=== PATIENT | female | born 1995 | race Caucasian/White ===

== ENCOUNTER 2018-02-24 06:20 | Emergency (ER) | payer BC ==
[~2018-02-24] VITALS: Ht 172.7 cm; Wt 86.2 kg
[2018-02-24] MEDS ORDERED: IV NORMAL SALINE 1,000ML 1,000 ML IV SCH (06:42)
[2018-02-24] MEDS ORDERED: 0.9 % SODIUM CHLORIDE 10 ML DISP.SYRIN. IV PRN (06:45)
--- NOTE | 2018-02-24 06:48 | PHYS DOC ---
Past History Past Medical History: No Pertinent History, UTI Past Surgical History: Tonsillectomy Smoking: Non-smoker Alcohol Use: Occasionally Drug Use: None Adult General Chief Complaint Chief Complaint: ABDOMINAL PAIN HPI HPI 22-year-old female patient states she woke up at 5 AM because of severe pain in bilateral lower flank with radiation to her lower abdomen as a constant sharp pain and rated her pain 6/10. Patient complaining of nausea without vomiting and diarrhea and constipation. Patient denies urinary symptom but states she gets UTI frequently. LMP was 1 week ago and patient denies . Patient states she had sore throat yesterday without fever and chills and felt better later on. Review of Systems Review of Systems Constitutional: Denies fever or chills [] Eyes: Denies change in visual acuity, redness, or eye pain [] HENT: Denies nasal congestion , reports sore throat [] Respiratory: Denies cough or shortness of breath [] Cardiovascular: No additional information not addressed in HPI [] GI: Reports abdominal pain, nausea, denies vomiting, bloody stools or diarrhea [ ] : Denies dysuria or hematuria [] Musculoskeletal: Denies back pain or joint pain [] Integument: Denies rash or skin lesions [] Neurologic: Denies headache, focal weakness or sensory changes [] Endocrine: Denies polyuria or polydipsia [] All other systems were reviewed and found to be within normal limits, except as documented in this note. Allergies Allergies Allergies Coded Allergies Type Severity Reaction Last Updated Verified morphine Allergy Mild VOMITING 03/24/15 No Physical Exam Physical Exam Constitutional: Well developed, well nourished, moderate distress, non-toxic appearance. [] HENT: Normocephalic, atraumatic, bilateral external ears normal, oropharynx moist, no oral exudates, nose normal. [] Eyes: PERRLA, EOMI, conjunctiva normal, no discharge. [] Neck: Normal range of motion, no tenderness, supple, no stridor. [] Cardiovascular:Heart rate regular rhythm, no murmur [] Lungs & Thorax: Bilateral breath sounds clear to auscultation [] Abdomen: Bowel sounds normal, soft, no tenderness, no masses, no pulsatile masses. [] Skin: Warm, dry, no erythema, no rash. [] Back: No tenderness, bilateral CVA tenderness Extremities: No tenderness, no cyanosis, no clubbing, ROM intact, no edema. [] Neurologic: Alert and oriented X 3, normal motor function, normal sensory function, no focal deficits noted. [] Psychologic: Affect normal, judgement normal, mood normal. [] EKG EKG [] Radiology/Procedures Radiology/Procedures [] [address] [id number] IMAGING REPORT Signed PATIENT: MICKY SANFORD ACCOUNT: [id number] : 1995 LOCATION: ER AGE: 22 SEX: F EXAM STATUS: REG ER ORD. PHYSICIAN: JEROME MORA MD REASON: flank pain PROCEDURE: CT ABDOMEN PELVIS WO CONTRAST CT abdomen and pelvis without contrast Comparison: CT abdomen and pelvis March 08, 2009. History: Left flank pain. Technique: Helical multiplanar reconstructed noncontrast CT imaging of the abdomen and pelvis was acquired. Abdomen findings: Bilateral chronic L5 spondylolysis with sclerotic bone margins and 2 mm L5 anterolisthesis at L5-S1 disc bulge with probable bilateral mild to moderate neural foraminal stenoses. Lung bases unremarkable. Liver, gallbladder, spleen, pancreas, adrenal glands are unremarkable. There is mild bilateral renal edema and perinephric stranding. No nephroureterolithiasis or hydronephrosis. No obstruction or inflammation the GI tract. Appendix is negative. No abdominal fluid. Pelvis findings: 2.5 cm hypodense lesion of the left ovary and smaller hypodense lesion of the right ovary. No bladder calculi or inflammatory changes. Trace dependent pelvic fluid. Uterus, rectum and bones are unremarkable. Impression: 1. Bilateral renal edema and perinephric edema. This is likely pyelonephritis. No nephroureterolithiasis or hydronephrosis. No bladder calculi. 2. The appendix is negative. 3. Nonspecific small hypodense lesions of the ovaries as described above, most likely dominant follicles or follicular cysts. DICTATED AND SIGNED BY: TUTU GOFF MD DATE: 02/24/18 0749 CC: KARLIE ORNELAS MD; JEROME MORA MD ~ Course & Med Decision Making Course & Med Decision Making Pertinent Labs and Imaging studies reviewed. (See chart for details) Evaluation of patient in ER showed 22-year-old female patient complaining of sudden onset of bilateral lower back and flank pain since this morning with nausea. Patient had bilateral CVA tenderness. Labs showed leukocytosis with WBC into a. CT showed bilateral pyelonephritis. Patient had blood pressure of 168/ 92 at arrival to ER that later on decreased to 152 over 88. Patient states she has history of elevation of blood pressure during her recent sinus surgery in December 2017. Because of elevation of blood pressure of bilateral pyelonephritis and elevation of creatinine plan to admit the patient at Hospital. Dr Harris informed at 0909 and recommended to transfer patient to [facility]. [] Dragon Disclaimer Dragon Disclaimer This electronic medical record was generated, in whole or in part, using a voice recognition dictation system. Departure Departure: Impression: Primary Impression: Acute pyelonephritis Additional Impressions: Elevated blood pressure reading without diagnosis of hypertension Leukocytosis Nausea Disposition: 02 XFER [facility] ([facility] at 0910) Admitting Physician: Shira Harris Condition: IMPROVED Referrals: KARLIE ORNELAS MD (PCP) Problem Qualifiers JEROME MORA MD Feb 24, 2018 06:48
[2018-02-24] MEDS ORDERED: ONDANSETRON PF 4 MG/2 ML VIAL. IV ONE (07:15)
[2018-02-24] MEDS ORDERED: KETOROLAC 30 MG/ML VIAL. IV ONE (07:15)
[2018-02-24 07:21] LABS: BASO # 0.1 x10^3/uL (0.0-0.2); BASO % 0 % (0-3); EOS # 0.2 x10^3/uL (0.0-0.7); EOS % 2 % (0-3); HEMATOCRIT 38.4 % (36.0-47.0); HEMOGLOBIN 12.4 g/dL (12.0-15.5); LYMPH # 1.7 x10^3/uL (1.0-4.8); LYMPH % 11 % (24-48); MEAN CORPUSCULAR HEMOGLOBIN 27 pg (25-35); MEAN CORPUSCULAR HGB CONC 32 g/dL (31-37); MEAN CORPUSCULAR VOLUME 82 fL (79-100); MONO # 1.3 x10^3/uL (0.0-1.1); MONO % 9 % (0-9); NEUT # 11.6 x10^3uL (1.8-7.7); NEUT % 78 % (31-73); PLATELET COUNT 247 x10^3/uL (140-400); RED BLOOD COUNT 4.69 x10^6/uL (3.50-5.40); RED CELL DISTRIBUTION WIDTH 14.1 % (11.5-14.5); WHITE BLOOD COUNT 14.9 x10^3/uL (4.0-11.0)
[2018-02-24 07:35] LABS: ALBUMIN 3.7 g/dL (3.4-5.0); ALBUMIN/GLOBULIN RATIO 1.1 (1.0-1.7); CALCIUM 8.8 mg/dL (8.5-10.1); CREATININE 1.4 mg/dL (0.6-1.0); GFR 46.6; POTASSIUM 3.8 mmol/L (3.5-5.1); TOTAL BILIRUBIN 0.4 mg/dL (0.2-1.0)
[2018-02-24] MEDS ORDERED: IV NORMAL SALINE 1,000ML 1,000 ML IV ONE (07:45)
--- NOTE | 2018-02-24 07:59 | RAD ---
CT abdomen and pelvis without contrast Comparison: CT abdomen and pelvis March 08, 2009. History: Left flank pain. Technique: Helical multiplanar reconstructed noncontrast CT imaging of the abdomen and pelvis was acquired. Abdomen findings: Bilateral chronic L5 spondylolysis with sclerotic bone margins and 2 mm L5 anterolisthesis at L5-S1 disc bulge with probable bilateral mild to moderate neural foraminal stenoses. Lung bases unremarkable. Liver, gallbladder, spleen, pancreas, adrenal glands are unremarkable. There is mild bilateral renal edema and perinephric stranding. No nephroureterolithiasis or hydronephrosis. No obstruction or inflammation the GI tract. Appendix is negative. No abdominal fluid. Pelvis findings: 2.5 cm hypodense lesion of the left ovary and smaller hypodense lesion of the right ovary. No bladder calculi or inflammatory changes. Trace dependent pelvic fluid. Uterus, rectum and bones are unremarkable. Impression: 1. Bilateral renal edema and perinephric edema. This is likely pyelonephritis. No nephroureterolithiasis or hydronephrosis. No bladder calculi. 2. The appendix is negative. 3. Nonspecific small hypodense lesions of the ovaries as described above, most likely dominant follicles or follicular cysts.
[2018-02-24] MEDS ORDERED: cefTRIAXone IV Push 1 GM VIAL. IVP ONE (08:15)
[2018-02-24 08:21] LABS: BACTERIA,URINE MOD /HPF (0-FEW); BILIRUBIN,URINE NEG (NEG); CLARITY,URINE CLEAR; COLOR,URINE YELLOW; GLUCOSE,URINE NEG (NEG); NITRITE,URINE NEG (NEG); UROBILINOGEN,URINE 0.2 mg/dL (0.2 mg/dL)
[2018-02-24 08:22] LABS: SQUAMOUS EPITHELIAL CELL,UR MANY /LPF
[2018-02-24] MEDS ORDERED: METOCLOPRAMIDE HCL 10 MG/2 ML VIAL. IV ONE (08:30)
[2018-02-24 09:00] VITALS: BP 160/94
== END 2018-02-24 09:57 | disposition short-term general hospital (02) ==
LOC: ER 06:20
DX: N10 Acute pyelonephritis (principal); R03.0 Elevated blood-pressure reading, without diagnosis of hypertension; D72.829 Elevated white blood cell count, unspecified; Z87.440 Personal history of urinary (tract) infections; Z88.5 Allergy status to narcotic agent
CPT/HCPCS: 36415; 74176; 80053; 81001; 81025; 83605; 85025; 87040; 96361; 96374; 96375; 96376; 99285; J0696; J1885; J2405; J2765; J3010; J7030

== ENCOUNTER → 2021-05-21 | Outpatient (CLI) | payer OTHER ==
--- NOTE | 2021-05-21 17:49 | RAD ---
EXAMINATION: US EXT NON VASC RIGHT (SOFT TISSUE ULTRASOUND OF THE RIGHT LOWER LEG) CLINICAL HISTORY: Lump right lateral calf with history of injury 2 weeks ago requiring stitches along the anterior calf TECHNIQUE: Grayscale and power Doppler ultrasound imaging was performed in the area of concern. COMPARISON: None FINDINGS/ IMPRESSION: Nonspecific subcutaneous heterogeneous collection measuring 2.5 x 1.7 x 1.0 cm at the region of inter est in the lateral lower leg without associated hyperemia. Overlying skin thickening and mild surroun ding subcutaneous edema. This may represent a hematoma or seroma with abscess considered less likely. Electronically signed by: Rashid Reyes DO (05/21/2021 5:47 PM) [id number]
== END ==
LOC: US 16:43
PROVIDERS: ATTEND Family Medicine
DX: L02.415 Cutaneous abscess of right lower limb (principal); R60.0 Localized edema
CPT/HCPCS: 76881